=== PATIENT | female | born 1955 | race Caucasian/White ===

== ENCOUNTER → 2018-06-08 | Outpatient (CLI) | payer MEDICAID ==
[~2018-06-08] MED LIST: ACET500C4 PO; ASPI-556 PO; BECL8.7A6 IH; GLYB5TAB8 PO; LISI40TA4 PO; LORA10TA7 PO; METF-446 PO; NITR.4 SL; OMEP20CA10 PO; SIMV40TA5 PO
== END | disposition home or self-care (01) ==
LOC: RADMN 10:06
PROVIDERS: ATTEND Internal Medicine Cardiovascular Disease
DX: I67.82 Cerebral ischemia (principal); G45.9 Transient cerebral ischemic attack, unspecified; R07.89 Other chest pain
CPT/HCPCS: 70551